=== PATIENT | female | born 1955 | race Caucasian/White ===

== ENCOUNTER → 2023-01-09 13:34 | Outpatient (CLI) | payer MEDICARE, SELFPAY ==
--- NOTE | 2023-01-23 17:13 | DI.NM.S_ITS ---
DATE OF SERVICE: 01/09/2023 PROCEDURE: Pharmacologic vasodilator stress and rest myocardial perfusion imaging with gating to assess ejection fraction and regional wall motion. DATE OF PROCEDURE: 01/09/2023, completed 01/23/2023 ORDERING PROVIDER: LUISA Kendall. INDICATIONS: The patient is a 67-year-old obese diabetic, hypertensive female with a strong family history of heart disease. PHARMACOLOGIC STRESS: Per protocol, 0.4 mg of regadenoson was infused with a normal hemodynamic response. She had minimal symptoms with stress. Her resting ECG showed sinus rhythm with normal ST segments, and there were no significant ST-segment shifts or arrhythmias with stress. Per protocol, 24.5 millicuries of technetium-99m Myoview was injected and she was imaged 10 minutes later using a gated SPECT acquisition protocol. Approximately two weeks prior, while at rest, she had been injected with 25.1 millicuries of technetium-99m Myoview and was imaged 20 minutes later using a gated SPECT acquisition protocol. FINDINGS: 1. Raw data: There are prominent breast shadows noted that clearly produce some attenuation, more apparent on the stress images than the rest images. The lung/heart ratio is mildly elevated at 0.46, although this is not evident visually and thus is nonspecific. The TID ratio is normal at 0.94. 2. Quantitated gated SPECT: Post-stress ejection fraction is 80% without any focal wall motion abnormality and specifically the anterior wall has brisk contractility. The resting ejection fraction is 64% with a normal resting end-diastolic volume of 75 mL. There is mild increased tracer uptake of the right ventricular free wall, which can be a sign of a right ventricular overload condition but clinical correlation is needed. 4. Myocardial perfusion imaging: Post-stress supine images show a mild defect in the mid to distal anterior wall, extending out to the apex, in a pattern consistent with breast attenuation artifact, supported by its complete resolution on the prone images which reveal a normal, homogeneous tracer pattern. The resting images show an identical perfusion pattern to that of the post-stress supine images with no change in the distal anterior and apical defect and no areas of improvement. IMPRESSION: 1. Probable normal myocardial perfusion study. 2. Mild, fixed distal anterior wall and apical perfusion defect that resolves on prone imaging, most consistent with breast attenuation artifact. There is no evidence for any significant myocardial ischemia or previous myocardial infarction. 3. Normal left ventricular systolic function without any focal wall motion abnormality. Left ventricular volumes are normal. There is increased right ventricular tracer uptake which can be a sign of a right ventricular overload condition, and there is increased lung uptake, suggesting possible pulmonary congestion, but clinical correlation is recommended for both. 4. No angina or ECG evidence of ischemia with pharmacologic vasodilator stress. Ondina Vivas - RS/fn/ doc#: [id number]/job#: [id number] dd: 01/23/2023 16:10:00 dt: 01/23/2023 17:02:00 DICTATING MD/COPIES TO: Johnie Titus MD; Negin Zafar M.D. COPIES MNE: EH;
== END ==
PROVIDERS: PCP Nurse Practitioner Family; Referring Provider Nurse Practitioner Family; Visit Provider Nurse Practitioner Family
DX: E11.9 Type 2 diabetes mellitus without complications (principal); E66.01 Morbid (severe) obesity due to excess calories; E78.5 Hyperlipidemia, unspecified; I10 Essential (primary) hypertension; M54.16 Radiculopathy, lumbar region; Z82.49 Family history of ischemic heart disease and other diseases of the circulatory system
CPT/HCPCS: 78452; 93016; 93017; 93018; A9502; J2785